=== PATIENT | male | born 1980 | race Hispanic/Latino ===

== ENCOUNTER 2019-11-06 11:23 | Emergency (ER) | payer SELFPAY ==
[2019-11-06] MEDS ORDERED: ACETAMINOPHEN 500 MG TAB PO ONE (11:44)
--- NOTE | 2019-11-06 11:47 | ED.PDOC ---
History of Present Illness - General Stated Complaint: Cough, congestion, bodyaches Time Seen by Provider: 11/06/19 11:43 - History of Present Illness Comments: 39 yo M no significant PMH presents to ED c/o cough sore throat body aches congestion x 2-3 days. Denies fever chills nausea vomiting admits non bloody diarrhea denies chest pain sob diaphoresis although admits chest wall pain with cough no change in diet bowel or bladder symptoms disturb rest has no PMD for follow up admits FH HTN DM admits smoking denies drinking no other c/o today. Allergies/Adverse Reactions: Allergies NO KNOWN ALLERGY Allergy (Verified 11/06/19 11:31) Home Medications: Ambulatory Orders Acetaminophen [Tylenol] 650 mg PO Q6H PRN #30 tab 11/06/19 Amoxicillin & Pot Clavulanate [Augmentin Tab] 875 mg PO BID 10 Days #20 tab 11/06/19 Ibuprofen 600 mg PO Q6H PRN #20 tab 11/06/19 Prednisone 40 mg PO DAILY 5 Days #10 tab 11/06/19 Review of Systems - Review of Systems Constitutional: States: see HPI EENTM: States: see HPI Respiratory: States: see HPI Cardiology: States: see HPI Gastrointestinal/Abdominal: States: see HPI Genitourinary: States: see HPI Musculoskeletal: States: see HPI Skin: States: see HPI Neurological: States: see HPI Endocrine: States: see HPI Hematologic/Lymphatic: States: see HPI All other Systems: Reviewed and Negative Past Medical History (General) - Patient Medical History Hx Stroke: No Hx Congestive Heart Failure: No Hx Diabetes: No - Vaccination History Hx Influenza Vaccination: Yes - 2019 Hx Pneumococcal Vaccination: No - Social History Hx Alcohol Use: No Hx Substance Use: Yes - Occasional marijuana use Family Medical History - Family History Father Family History: No Known Living Status: Still Living Physical Exam - Physical Exam General Appearance: No apparent distress Eye Exam: bilateral normal ENT Exam: pharyngeal erythema Neck: non-tender, full range of motion Respiratory: lungs clear, normal breath sounds Cardiovascular/Chest: regular rate, rhythm Gastrointestinal/Abdominal: non tender, soft Extremity: normal range of motion, non-tender Neurologic: no motor/sensory deficits Skin Exam: normal color Progress - Progress Progress: 11/06/19 11:48 A/P-Pharyngitis Cough URI Myalgia-tylenol decadron cxr rapid flu rapid strep reassess if unremarkable d/c follow up pcp tylenol ibuprofen prednisone augmentin for the pharyngitis 11/06/19 12:29 Laboratory Tests 11/06/19 11:40 Group A Strep Rapid Negative 11/06/19 12:41 Laboratory Tests 11/06/19 11:40 Group A Strep Rapid Negative EXAM DESCRIPTION: Chest,2 Views CLINICAL HISTORY: 39 years Male, cough COMPARISON: None. FINDINGS: 2 views/radiographs Heart size and pulmonary vessels are within normal limits. There is no pneumothorax or pleural effusion. The lungs are clear bilaterally. The soft tissues are unremarkable. No acute osseous findings. IMPRESSION: No acute cardiopulmonary abnormality. Electronically signed by: Gadiel Valiente MD 11/06/2019 12:36 PM [facility] Departure - Departure Clinical Impression: Cough, Myalgia Upper respiratory infection Qualifiers: URI type: unspecified URI Qualified Code(s): J06.9 - Acute upper respiratory infection, unspecified Time of Disposition: 12:43 Disposition: Discharge to Home or Self Care Condition: Good Prescriptions: Acetaminophen [Tylenol] 650 mg PO Q6H PRN #30 tab PRN Reason: Pain Amoxicillin & Pot Clavulanate [Augmentin Tab] 875 mg PO BID 10 Days #20 tab Ibuprofen 600 mg PO Q6H PRN #20 tab PRN Reason: Pain Prednisone 40 mg PO DAILY 5 Days #10 tab Home Medications: Ambulatory Orders Acetaminophen [Tylenol] 650 mg PO Q6H PRN #30 tab 11/06/19 Amoxicillin & Pot Clavulanate [Augmentin Tab] 875 mg PO BID 10 Days #20 tab 11/06/19 Ibuprofen 600 mg PO Q6H PRN #20 tab 11/06/19 Prednisone 40 mg PO DAILY 5 Days #10 tab 11/06/19
[2019-11-06] MEDS ORDERED: DEXAMETHASONE INJ 10 MG/ML VIAL IM ONE (11:50)
--- NOTE | 2019-11-06 12:38 | RAD ---
EXAM DESCRIPTION: Chest,2 Views CLINICAL HISTORY: 39 years Male, cough COMPARISON: None. FINDINGS: 2 views/radiographs Heart size and pulmonary vessels are within normal limits. There is no pneumothorax or pleural effusion. The lungs are clear bilaterally. The soft tissues are unremarkable. No acute osseous findings. IMPRESSION: No acute cardiopulmonary abnormality. Electronically signed by: Gadiel Valiente MD 11/06/2019 12:36 PM [facility]
[2019-11-06 13:08] VITALS: O2SAT 98
[2019-11-06 13:09] VITALS: BP 106/67; TEMP 98.1
== END 2019-11-06 13:07 | disposition home or self-care (01) ==
LOC: ER 11:23
DX: J06.9 Acute upper respiratory infection, unspecified (principal); M79.10 Myalgia, unspecified site; F17.200 Nicotine dependence, unspecified, uncomplicated
CPT/HCPCS: 71046; 87070; 87502; 87880; J1100